=== PATIENT | male | born 1970 | race Caucasian/White ===

== ENCOUNTER 2016-10-12 17:45 | Inpatient (IN) | payer OTHER, BC ==
[~2016-10-12] VITALS: Ht 167.6 cm; Wt 60.3 kg
[~2016-10-12 17:45] MED LIST: OXAYDO5 MG PO; SERTRALINE HCL50 MG PO; TYLENOL WITH C1 EACH PO; [UNRECOGNIZED DRUG - REMARK]
[2016-10-12 18:20] VITALS: BP 96/57
[2016-10-12] MEDS ORDERED: ASPIRIN325 MG PO (18:32)
[2016-10-12] MEDS ORDERED: COLACE100 MG PO (18:32)
[2016-10-13 00:27] VITALS: BP 118/76
[2016-10-13 04:48] LABS: HEMATOCRIT 28.9 % (38.0-50.0); MCH 31.4 PG (29.0-34.0); MCHC 34.6 G/DL (30.0-36.0); MCV 90.9 FL (86-99); MEAN PLAT.VOLUME 9.9 uM^3 (9.0-12.4); PLATELET COUNT 154 K/uL (156-360); RBC DIS.WIDTH-CV 13.1 % (11.8-14.6); RBC DIS.WIDTH-SD 42.3 % (39-53); RED BLOOD COUNT 3.18 M/uL (4.00-5.50); WHITE BLOOD COUNT 9.9 K/uL (4.1-10.2)
[2016-10-13 05:04] VITALS: BP 116/70
[2016-10-13 05:08] LABS: CHLORIDE 103 mEq/L (99-109); POTASSIUM 3.9 mEq/L (3.7-5.4); SODIUM 137 mEq/L (136-147)
[2016-10-13 05:10] LABS: GLUCOSE 138 mg/dL (70-99)
[2016-10-13 05:11] LABS: ANION GAP 8 MEQ/L (2-14)
[2016-10-13 05:12] LABS: TOTAL BILIRUBIN 0.8 mg/dL (0.0-1.0)
[2016-10-13 05:13] LABS: ALKALINE PHOSPHATASE 53 IU/L (3-129)
[2016-10-13 05:14] LABS: GFR ESTIMATE (CALCULATED) > 59 mL/min/
[2016-10-13 05:15] LABS: UREA NITROGEN (BUN) 14 mg/dL (9-23)
[2016-10-13 15:24] VITALS: BP 121/68
[2016-10-14 06:18] VITALS: BP 107/60
[2016-10-14 15:07] VITALS: BP 124/68
[2016-10-15 05:22] VITALS: BP 106/59
[2016-10-15 15:13] VITALS: BP 111/57
[2016-10-16 05:57] VITALS: BP 114/60
[2016-10-16 15:46] VITALS: BP 116/60
[2016-10-17 05:11] VITALS: BP 113/64
[2016-10-17 15:36] VITALS: BP 104/54
[2016-10-18 05:36] VITALS: BP 118/68
[2016-10-18 17:48] VITALS: BP 122/68
[2016-10-19 05:38] VITALS: BP 121/68
[2016-10-19 05:58] LABS: EOSINOPHIL (%) 2.4 % (0-5); EOSINOPHIL COUNT 0.2 K/uL (0-0.3); HEMATOCRIT 30.4 % (38.0-50.0); IMMATURE GRANULOCYTE (%) 0.3 % (0.0-0.7); LYMPHOCYTE COUNT 1.6 K/uL (1.0-2.8); MCH 30.9 PG (29.0-34.0); MCHC 34.2 G/DL (30.0-36.0); MCV 90.2 FL (86-99); MONOCYTE (%) 7.4 % (3-12); MONOCYTE COUNT 0.7 K/uL (0-0.8); NEUTROPHIL (%) 71.9 % (45-76); NEUTROPHIL COUNT 6.5 K/uL (1.8-6.4); RBC DIS.WIDTH-CV 13.4 % (11.8-14.6); RBC DIS.WIDTH-SD 43.3 % (39-53); RED BLOOD COUNT 3.37 M/uL (4.00-5.50); WHITE BLOOD COUNT 9.1 K/uL (4.1-10.2)
[2016-10-19 06:27] LABS: ALKALINE PHOSPHATASE 55 IU/L (3-129); ANION GAP 9 MEQ/L (2-14); CHLORIDE 103 MEQ/L (99-109); GFR ESTIMATE (CALCULATED) > 59 mL/min/; GLUCOSE 121 mg/dL (70-99); POTASSIUM 3.7 MEQ/L (3.7-5.4); SAMPLE HEMOLYSIS CHECK 0; SAMPLE ICTERIC CHECK 0; SAMPLE LIPEMIA CHECK 0; SODIUM 138 MEQ/L (136-147); TOTAL BILIRUBIN 0.7 MG/DL (0.0-1.0); UREA NITROGEN (BUN) 21 mg/dL (9-23)
[2016-10-19 06:49] LABS: MEAN PLAT.VOLUME 9.5 uM^3 (9.0-12.4)
[2016-10-19 06:51] LABS: PLATELET COUNT 347 K/uL (156-360)
[2016-10-19 15:15] VITALS: BP 113/57
[2016-10-20 06:00] VITALS: BP 108/62
[2016-10-20 15:24] VITALS: BP 112/56
[2016-10-21 04:00] VITALS: BP 101/74
[2016-10-21 15:20] VITALS: BP 120/60
[2016-10-22 05:54] VITALS: BP 116/63
[2016-10-22 14:44] VITALS: BP 107/62
[2016-10-23 04:51] VITALS: BP 117/63
[2016-10-23 16:02] VITALS: BP 129/55
[2016-10-24 05:28] VITALS: BP 108/64
[2016-10-24 15:26] VITALS: BP 122/55
[2016-10-25 05:57] VITALS: BP 111/66
[2016-10-25 15:35] VITALS: BP 134/66
[2016-10-26 04:56] VITALS: BP 116/69
[2016-10-26 15:30] VITALS: BP 104/55
[2016-10-26 16:10] VITALS: BP 118/967
[2016-10-26 18:14] LABS: HEMATOCRIT 31.8 % (38.0-50.0); MCH 30.7 PG (29.0-34.0); MCHC 33.6 G/DL (30.0-36.0); MCV 91.1 FL (86-99); MEAN PLAT.VOLUME 8.8 uM^3 (9.0-12.4); PLATELET COUNT 415 K/uL (156-360); RBC DIS.WIDTH-CV 14.6 % (11.8-14.6); RBC DIS.WIDTH-SD 47.5 % (39-53); RED BLOOD COUNT 3.49 M/uL (4.00-5.50); WHITE BLOOD COUNT 7.2 K/uL (4.1-10.2)
[2016-10-26 18:48] LABS: ALKALINE PHOSPHATASE 86 IU/L (3-129); ANION GAP 12 MEQ/L (2-14); CHLORIDE 102 MEQ/L (99-109); GFR ESTIMATE (CALCULATED) > 59 mL/min/; GLUCOSE 125 mg/dL (70-99); POTASSIUM 3.9 MEQ/L (3.7-5.4); SAMPLE HEMOLYSIS CHECK 0; SAMPLE ICTERIC CHECK 0; SAMPLE LIPEMIA CHECK 0; SODIUM 138 MEQ/L (136-147); TOTAL BILIRUBIN 0.4 MG/DL (0.0-1.0); UREA NITROGEN (BUN) 20 mg/dL (9-23)
[2016-10-26 19:07] LABS: EOSINOPHIL (%) 2.1 % (0-5); EOSINOPHIL COUNT 0.2 K/uL (0-0.3); IMMATURE GRANULOCYTE (%) 0.3 % (0.0-0.7); LYMPHOCYTE COUNT 2.2 K/uL (1.0-2.8); MONOCYTE (%) 6.1 % (3-12); MONOCYTE COUNT 0.4 K/uL (0-0.8); NEUTROPHIL (%) 60.8 % (45-76); NEUTROPHIL COUNT 4.4 K/uL (1.8-6.4)
[2016-10-26 20:48] LABS: ADD MIUA? NO; BILIRUBIN NEGATIVE; BLOOD NEGATIVE; COLOR YELLOW ((YELLOW)); GLUCOSE (STRIP) NEGATIVE; KETONES NEGATIVE; LEUKOCYTES NEGATIVE; NITRITE NEGATIVE; PH, URINE 5.5 (5-8); PROTEIN (STRIP) NEGATIVE; SPECIFIC GRAVITY 1.016 (1.000-1.030); UROBILINOGEN 0.2 MG/DL (0.2-1.0)
[2016-10-27 05:32] VITALS: BP 113/64
[2016-10-27] MEDS ORDERED: TYLENOL REGULA325 MG PO (11:36)
[2016-10-27] MEDS ORDERED: SERTRALINE HCL50 MG PO (11:36)
[2016-10-27] MEDS ORDERED: VITAMIN D-32000 UNI2 PO (11:36)
[2016-10-27] MEDS ORDERED: OXYCODONE HCL5 MG PO (11:36)
[2016-10-27] MEDS ORDERED: FOLIC ACID1 MG PO (11:36)
[2016-10-27] MEDS ORDERED: THERAGRAN1 TABLET PO (11:36)
[2016-10-27] MEDS ORDERED: SENNA PLUS TAB1 EACH PO (11:36)
[2016-10-27] MEDS ORDERED: COLACE100 MG PO (11:36)
[2016-10-27] MEDS ORDERED: ASCORBIC ACID500 M3 PO (11:36)
== END 2016-10-27 14:40 | disposition home health service (06) | DRG 945 ==
LOC: 3WEST 17:45
PROVIDERS: Physical Medicine & Rehabilitation Pain Medicine; Psychiatry & Neurology Neurology
PROC: F07M0ZZ Range of Motion and Joint Mobility Treatment of Musculoskeletal System - Whole Body (ICD-10-PCS; principal; 2016-10-12)
DX: R53.1 Weakness (principal); S82.001E Unspecified fracture of right patella, subsequent encounter for open fracture type I or II with routine healing; S82.141E Displaced bicondylar fracture of right tibia, subsequent encounter for open fracture type I or II with routine healing; D62 Acute posthemorrhagic anemia; G89.18 Other acute postprocedural pain; M17.11 Unilateral primary osteoarthritis, right knee; F70 Mild intellectual disabilities; M81.0 Age-related osteoporosis without current pathological fracture; E73.9 Lactose intolerance, unspecified; F41.9 Anxiety disorder, unspecified; K59.00 Constipation, unspecified
CPT/HCPCS: 73501; 73551; 73560; 73564; 80053; 81003; 82306; 82607; 82746; 85025; 85027; 97110 GO; 97530 GP; 99281; 99284; J1170